=== PATIENT | male | born 1965 | race Caucasian/White ===

== ENCOUNTER 2020-01-23 23:28 | Emergency (ER) | payer BC ==
[~2020-01-23] VITALS: Ht 172.7 cm; Wt 81.6 kg
[2020-01-23 23:38] VITALS: Ht 172.7 cm; Wt 81.6 kg
[2020-01-24 00:37] LABS: BASOPHIL % 0.5 % (0-2); PLATELET COUNT 230 x10^3mcL (130-400); RED CELL DISTRIBUTION WIDTH 12.8 % (11.5-14.5)
[2020-01-24 00:41] LABS: CALCIUM 8.8 mg/dL (8.5-10.1); CARBON DIOXIDE 27.8 mmol/L (21-32); CHLORIDE SERUM 98 mmol/L (98-107); CREATININE SERUM 1.2 mg/dL (0.7-1.3); GFR1 > 60 mL/min; GLUCOSE SERUM 249 mg/dL (74-106); POTASSIUM SERUM 3.5 mmol/L (3.5-5.1); SODIUM SERUM 137 mmol/L (136-145)
[2020-01-24 00:45] LABS: ALBUMIN 4.2 g/dL (3.4-5.0); ALKALINE PHOSPHATASE 71 U/L (46-116); ALT/SGPT 35 U/L (16-63); AST/SGOT 21 U/L (15-37); BILIRUBIN TOTAL 0.9 mg/dL (0.20-1.00); LIPASE 99 IU/L (73-393); TOTAL PROTEIN, SERUM 7.5 g/dL (6.4-8.2)
[2020-01-24 02:18] VITALS: BP 131/87
== END 2020-01-24 02:18 | disposition home or self-care (01) ==
LOC: ED 23:28
PROVIDERS: Emergency Medicine
DX: N23 Unspecified renal colic (principal); E11.9 Type 2 diabetes mellitus without complications
CPT/HCPCS: J1885; J2270; J2405; J7030